=== PATIENT | male | born 1985 | race African-American/Black ===

== ENCOUNTER → 2018-08-12 | Outpatient (CLI) | payer BC | LOC: CIMAGING 07:19 | PROVIDERS: ATTEND Nurse Practitioner Family | DX: R10.11 Right upper quadrant pain (principal) | CPT/HCPCS: 76705-PO ==

== ENCOUNTER → 2018-11-30 | Outpatient (CLI) | payer BC | LOC: CIMAGING 12:32 | PROVIDERS: ATTEND Nurse Practitioner Family | DX: R59.0 Localized enlarged lymph nodes (principal) | CPT/HCPCS: 76536-PO ==